=== PATIENT | male | born 1985 | race African-American/Black ===

== ENCOUNTER 2022-04-29 08:30 | Day surgery (SDC) | payer BC ==
[2022-04-26 12:31] LABS: Absolute Lymphocytes (CBC) 1.7 K/uL (0.7-4.9); Hematocrit 40.3 % (39.6-49.0); Lymphocytes % 35.8 % (15.3-44.8); MCV 95.8 fL (80-100); MPV 7.8 fL (7.6-11.3)
[2022-04-26 12:42] LABS: Protime INR 1.02
[2022-04-26 12:48] LABS: Potassium 3.9 mmol/L (3.5-5.1)
--- NOTE | 2022-04-26 13:43 | EKG ---
Test Date: 2022-04-26 Test Time: 10:20:34 Security Specialist: NISHANT MEASUREMENT RESULTS: Intervals: Rate: 41 SC: 160 QRSD: 86 QT: 400 QTc: 330 [place]: P: 77 SC: 160 QRS: 78 T: -18 INTERPRETIVE STATEMENTS: Marked sinus bradycardia Nonspecific ST and T wave abnormality Abnormal ECG No previous ECG available for comparison Electronically Signed On 04-26-22 13:43:04 ROOM SERVICE WAITER by Martin Castillo
--- NOTE | 2022-04-26 13:58 | RAD REPORT ---
EXAM DESCRIPTION: RAD - Chest Pa And Lat (2 Views) - 04/26/2022 10:55 am CLINICAL HISTORY: Pre op pending carpal tunnel release COMPARISON: None TECHNIQUE: Frontal and lateral views of the chest were obtained. FINDINGS: The lungs are clear. Heart size is normal and central vasculature is within normal limit s. No pleural effusion or pneumothorax seen. No acute bony finding noted. No aortic abnormality. IMPRESSION: No acute cardiopulmonary process.
[2022-04-29] MEDS ORDERED: CEFAZOLIN SODIUM 1 GM/VIAL ONE (08:51)
[2022-04-29] MEDS ORDERED: Ringers Lactate 1,000 ML IV ONE (08:51)
[2022-04-29] MEDS ORDERED: FENTANYL CITR 100 MCG/2 ML ONE (09:10)
[2022-04-29] MEDS ORDERED: propofoL 200 MG/20 ML VIAL IV ONE (09:10)
[2022-04-29] MEDS ORDERED: LIDOCAINE 2% MPF 5 ML VIAL ONE (09:10)
[2022-04-29] MEDS ORDERED: dexAMETHasone 10 MG/ML VIAL ONE (09:10)
[2022-04-29] MEDS ORDERED: MIDAZOLAM HCL 2 MG/2 ML INJ ONE (09:10)
[2022-04-29] MEDS ORDERED: KETOROLAC 30 MG/ML INJ ONE (09:10)
[2022-04-29] MEDS ORDERED: ONDANSETRON 4 MG/2 ML VIAL ONE (09:12)
[2022-04-29] MEDS ORDERED: GLYCOPYRROLATE 0.2 MG/ML SYR ONE (09:21)
[2022-04-29] MEDS ORDERED: NS 0.9% VIAL 10 ML ONE (09:59)
[2022-04-29] MEDS: BUPIVACAINE 0.25% PF 10 ML VIAL ONE ×2 (10:09→10:11)
--- NOTE | 2022-04-29 10:37 | P.BOP ---
Preoperative diagnosis: right carpal tunnel syndrome Postoperative diagnosis: same Primary procedure: right open carpal tunnel release [employer] Production Specialist: NONE,NONE Estimated blood loss: 3 cc Specimen: none Findings: see dictation Anesthesia: General Complications: None Implants: none Fluids & blood products: per anesthesia record; TT: 22 mins @ 300 mmHg Transferred to: Recovery Room Condition: Good
[2022-04-29 11:59] VITALS: TEMP 97.2; O2SAT 100
[2022-04-29 12:00] VITALS: BP 110/62
== END 2022-04-29 11:52 | disposition home or self-care (01) ==
LOC: OR 08:30
PROVIDERS: ATTEND Orthopaedic Surgery Sports Medicine
PROC: 01N50ZZ Release Median Nerve, Open Approach (ICD-10-PCS; principal; 2022-04-29 10:30)
DX: G56.01 Carpal tunnel syndrome, right upper limb (principal)
CPT/HCPCS: 93005; 85025; 80048; 36415; 85610; 85730; 71046; 64721; J2704; J2001; J2250; J3010; J1100; A4216; J7120; J2405; J0690

== ENCOUNTER 2024-01-13 11:13 | Emergency (ER) | payer BC, OTHER ==
--- OUTSIDE RECORDS SUMMARY | 2024-01-13 11:16 | XMS REPORT | Continuity of Care Document ---
Author Name Unknown Address [address] [place] [address] [facility] thconnect Address [address] [place] [address] Care Team Providers Care Dynamotor Repairer Name Role Phone Jose Cabrera Attending Clinician Francisco Javier Simms MD Attending Clinician [phone] Samina Mathews Attending Clinician [phone] Unknown, Attending Attending Clinician Dagoberto mccord Doctor Unassigned, [place] Attending Clinician U navailable Physician, No Primary or Family Admitting Clinic angella Unavailable Payers Payer Name Policy Type Policy Number Effective Date Expirati on Date Source [id number] 2018 00:00:00 Problems Condition Name Condition Details Condition Category Status Onset Date Resolution Date Last Treatment Date Treating Clinician Comments Source No known active problems No known active problems Disease [facility] Allergies, Adverse Reactions, Alerts Allergy Name Allergy Type Status Severity Reaction(s) Onset Date Inactive Date Treating Clinician Comments Source No Known Allergie s DA Active U 01-26 00:00: 00 [facility] NO KNOWN ALLERGIE S Drug Class Active [facility] Social History Social Habit Start Date Stop Date Quantity Comments Source Sex Assigned At [facility] Exposure to SARS-CoV-2 (event) Not sure [facility] Tobacco use and exposure 2019-06-20 00:00:00 2019-06-20 00:00:00 Never used [facility] Alcohol intake 2019-06-20 00:00:00 2019-06-20 00:00:00 Ex-drinker (finding) [facility] Smoking Status Start Date Stop Date Source Unknown if ever smoked [facility] Current every day smoker 2019-06-20 00:00:00 [facility] Medications Ordered Medication Name Filled Medication Name Start Date Stop Date Current Medication? Ordering Clinician Indication Dosage Frequency Signature (SIG) Comments Components Source tetanus-dip htheria toxoids (TENIVAC) 5-2 Lf unit/0.5 mL injection 0.5 mL 2019-05 08:00: 00 05-13 07:12 :00 No .5mL 0.5 mL, Intramuscu lar, ONCE, 1 dose, 05/13/20 at 0200, Routine [facility] ciprofloxac in HCl 500 mg tablet 2019-05 00:00: 00 Yes [id number] 500mg Take 1 tablet by mouth 2 (two) times daily. [facility] traMADoL 50 mg tablet 2019-05 00:00: 00 05-21 05:59 :00 No [id number] 50mg Take 1 tablet by mouth every 6 (six) hours as needed for Pain (scale 4-6) for up to 7 days. Indication s: acute pain [facility] naproxen 500 mg tablet 06-20 00:00: 00 Yes [id number] 500mg Take 1 tablet by mouth 2 (two) times daily with meals. [facility] VYVANSE 30 mg capsule 06-15 00:00: 00 Yes TK ONE C PO ONCE D [facility] Vital Signs Vital Name Observation Time Observation Value Comments S our Systolic blood pressure 2020-05-13 06:46:00 140 mm[Hg] [facility] Diastolic blood pressure 2020-05-13 06:46:00 76 mm[Hg] [facility] Heart rate 2020-05-13 06:46:00 86 /min [facility] Body temperature 2020-05-13 06:46:00 36.78 Estrellita [facility] Respiratory rate 2020-05-13 06:46:00 17 /min [facility] Body height 2020-05-13 06:46:00 172.7 cm [facility] Body weight 2020-05-13 06:46:00 78.019 kg [facility] BMI 2020-05-13 06:46:00 26.15 kg/m2 [facility] Oxygen saturation in Arterial blood by Pulse oximetry 2020-05-13 06:46:00 100 /min [facility] Systolic blood pressure 2019-06-21 02:28:00 134 mm[Hg] [facility] Diastolic blood pressure 2019-06-21 02:28:00 87 mm[Hg] [facility] Heart rate 2019-06-21 02:28:00 89 /min [facility] Body temperature 2019-06-21 02:28:00 36.89 Estrellita [facility] Respiratory rate 2019-06-21 02:28:00 17 /min [facility] Body height 2019-06-21 02:28:00 175.3 cm [facility] Body weight 2019-06-21 02:28:00 78.382 kg [facility] BMI 2019-06-21 02:28:00 25.52 kg/m2 [facility] Oxygen saturation in Arterial blood by Pulse oximetry 2019-06-21 02:28:00 97 /min [facility] Procedures Procedure Date / Time Performed Performing Clinicia n Source NOTICE OF PRIVACY PRACTICES 2020-05-13 06:37:54 Doctor Unassigned, [place] [facility] CONSENT/REFUSAL FOR DIAGNOSIS AND TREATMENT 2020-05-13 06:36:09 Doctor Unassigned, [place] [facility] ASSIGNMENT OF BENEFITS 2019-06-21 01:34:18 Docto r Unassigned, [place] [facility] Encounters Start Date/Time End Date/Time Encounter Type Admission Type Attending Clinicians Care Facility Care Department Encounter ID Source 2021-03-21 12:36:40 Emergency [facility] [id number] [facility] 2022-01-26 15:47:00 2022-01-26 17:00:00 Emergency EM Jose Cabrera [facility] ETIENNE [id number] [facility] 2020-05-13 00:51:00 2020-05-13 01:49:00 Emergency Francisco Javier Bronson [facility] [id number] [facility] 2019-06-20 21:00:00 2019-06-20 23:59:00 Hospital Encounter Samina Groves [facility] Surgical Specialti james [place] [id number] [facility] 2019-06-20 19:36:57 2019-06-20 19:51:57 Urgent Care Samina Groves Unknown, Attending [facility] Surgical [facility] [id number] [facility] 2019-06-20 00:00:00 2019-06-20 00:00:00 Orders Only Doctor Unassigned, [place] [facility] [id number] [facility] Notes Date/Time Note Provider Source 2022-01-26 16:20:00 [facility] ([facility]) EMERGENCY PROVIDER REPORT REPORT#:[id number] REPORT STATUS: Signed DATE:01/26/22 TIME: 1620 PATIENT: PONCHO WOODWARD UNIT #: [id number] ROOM/BED: AGE: 36 SEX: M PCP PHYS: No Primary or Family Physician SERVICE AUTHOR: Jose Cabrera MD * ALL edits or amendments must be made on the electronic/computer document * HPI-Allergic Reaction Free Text HPI Notes Free Text HPI Notes 36-year-old man past medical history of carpal tunnel, everyday smoker, here several hours after being stung by several bees. Reports being at work and was attacked by a number of bees. Reports stings to mainly upper arms. Was wearing sleeves and pants. Proceeded to roll around on the ground where he believes he got rid of many of the bees. Called 911, EMS arrived, gave IV Benadryl. Patient and worksite supervisor salvage both endorse that he was not given any IM epinephrine. At time of MD evaluation, if has been several hours since sting and meds. Patient with no current complaints, denies any pain. Denies any difficulty breathing at any time. Denies any facial swelling. General Initial Greet Date/Time 01/26/22 1610 Presentation Chief Complaint Allergic reaction Review of Systems Free Text ROS Notes Free Text ROS Notes Constitutional: Negative for fever, fatigue. Eyes: Negative for eye pain, redness, or vision changes. ENT: Negative for congestion, rhinorrhea, sore throat, difficulty swallowing. Respiratory: Negative for cough, shortness of breath, hemoptysis. Cardiovascular: Negative for chest pain, palpitations. Gastrointestinal: Negative for abdominal pain, nausea, vomiting. Negative for melena, hematochezia. Genitourinary: Negative for hematuria, dysuria, incontinence. Musculoskeletal: Negative for neck pain, back pain, joint pain. Extremities: Negative for swelling in extremities. Hematologic/Lymphatic: Negative for adenopathy. Skin: Negative for bruising. Neurologic: Negative for headache, seizures. Past Medical History - Adult Stated Complaint ATTACKED BY BEES Allergies Coded Allergies: No Known Allergies (01/26/22) Past Medical History: Denies: Asthma. Past Surgical History: Denies: Transplant recipient. Smoking status for patients 13 years old or older: Current every day smoker Physical Exam Vital Signs Vital Signs First Documented: Result Date Time Pulse Ox 100 01/26 1552 B/P 123/68 01/26 1552 B/P Mean 86 01/26 1552 O2 Delivery Room air 01/26 1552 Temp 36.7 01/26 1552 Pulse 101 01/26 1552 Resp 14 01/26 1552 Last Documented: Result Date Time Pulse Ox 100 01/26 1906 B/P 123/68 01/26 1906 B/P Mean 86.1 01/26 1906 Temp 36.7 01/26 190 Pulse 108 01/26 1906 Resp 14 01/26 1906 O2 Delivery Room air 01/26 155 Review of Vital Signs Reviewed, Vital signs normal Free Text PE Notes Free Text PE Notes GENERAL: Generally well-appearing patient, appropriate appearance for age, no acute distress. HEENT: Normocephalic and atraumatic. Extraocular movements intact. Clear conjunctiva without appreciable pallor or jaundice. Oropharynx clear. Foreign object that appears to be bee sting or removed from left auricle of the ear. No swelling around her and erythema. No discharge noted NECK: Supple without lymphadenopathy. No stiffness or restricted ROM. CARDIOVASCULAR: Normal rate and regular rhythm, normal S1/S1, no murmurs, rubs, or gallops appreciated. 2+ radial pulses symmetric bilaterally. LUNGS: Clear to auscultation bilaterally, moving air well. No crackles or wheezes are heard. ABDOMEN: Soft, nontender, nondistended with normoactive bowel sounds. Negative baeza s sign. BACK: No obvious deformity. No CVA tenderness. EXTREMITIES: Without cyanosis, clubbing or edema. Capillary refill appropriate at fingertips <3 seconds. SKIN: Warm and dry without any rashes, lesions, or bruising. No pallor or jaundice appreciated. No swelling, redness or blanching. No other foreign bodies or stingers identified. NEUROLOGICAL: Alert and oriented, moving all 4 extremities. Observed to ambulate with normal gait. Interpretation Diagnostics Point of Care Testing Pulse Oximetry Pulse Ox % 100 On: Room air Interpretation Interpreted by me, Pulse oximetry normal Time 1522 Re-Evaluation MDM Free Text MDM Notes Free Text MDM Notes 36-year-old man here after multiple bee stings at worksite. Given Benadryl by EMS, no epinephrine. Patient with no known history of any anaphylaxis. Overall well-appearing now on my exam, no signs or symptoms. And stinger identified ear. Overall consistent with bee stings. Given patient now several hours out from incident, with no rebound symptoms, this overall seems to be an appropriate reaction to multiple stings, with no signs of anaphylaxis. Patient overall well-appearing, with primary care doctor. I discussed my concern given the initial reaction, competence of this not anaphylaxis, that patient does not need to have an EpiPen as I see it, but if any worsening signs or symptoms develop, report patient notices any symptoms in the future along with respiratory concerns or GI concerns, though this may be a sign of anaphylaxis and the patient requires emergent intervention will likely need to carry an EpiPen in the future. Patient with plan to follow-up with PCP next several days. Given strict return precautions I would necessitate ED evaluation. Patient and work supervisor salvage at bedside, expressed understanding of this plan. Patient reported agreement and desire to have work supervisor salvage here for evaluation. Patient discharged in stable condition. )( Re-Evaluation/Progress #1 )( Re-Eval Status Improved Patient Discharge Departure Vital Signs/Condition Vital Signs First Documented: Result Date Time Pulse Ox 100 01/26 1552 B/P 123/68 01/26 1552 B/P Mean 86 01/26 1552 O2 Delivery Room air 01/26 1552 Temp 36.7 01/26 1552 Pulse 101 01/26 1552 Resp 14 01/26 1552 Last Documented: Result Date Time Pulse Ox 100 01/26 1906 B/P 123/68 01/26 1906 B/P Mean 86.1 01/26 1906 Temp 36.7 01/26 1906 Pulse 108 01/26 1906 Resp 14 01/26 1906 O2 Delivery Room air 01/26 1552 All vital signs available at the time of this entry have been reviewed. Condition Stable Clinical Impression Clinical Impression Primary Impression: Bee sting reaction Disposition Decision Discharge )( Discharged to Home Yes )( Time 1620 )( Date 01/26/22 Discharge/Care Plan Patient Instructions ED BEE STING General Allergic Rxn, ED Insect Sting, Local Reaction Referrals Referral: Primary Care Follow-Up: 2-3 Days Discharge Note I have spoken with the patient and/or caregivers. I have explained the patient's condition, diagnoses and treatment plan based on the information available to me at this time. I have answered the patient's and/or caregiver's questions and addressed any concerns. The patient and/or caregivers have as good an understanding of the patient's diagnosis, condition and treatment plan as can be expected at this point. The vital signs have been stable. The patient's condition is stable and appropriate for discharge from the emergency department. The patient will pursue further outpatient evaluation with the primary care physician or other designated or consulting physician as outlined in the discharge instructions. The patient and/or caregivers are agreeable to this plan of care and follow-up instructions have been explained in detail. The patient and/or caregivers have received these instructions in written format and have expressed an understanding of the discharge instructions. The patient and/or caregivers are aware that any significant change in condition or worsening of symptoms should prompt an immediate return to this or the closest emergency department or a call to 911. at 1351 RPT #:[id number] END OF REPORT [facility]
[2024-01-13] MEDS ORDERED: KETOROLAC 30 MG/ML INJ ONE (11:46)
[2024-01-13] MEDS ORDERED: CYCLOBENZAPRINE 10 MG TAB ONE (11:46)
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
[2024-01-13 12:47] VITALS: BP 132/71; TEMP 97.6; O2SAT 99
== END 2024-01-13 12:44 | disposition home or self-care (01) ==
LOC: ER 11:13
DX: R20.2 Paresthesia of skin (principal); V49.49XA Driver injured in collision with other motor vehicles in traffic accident, initial encounter
CPT/HCPCS: 72125; 72131; 96372; 99284